=== PATIENT | male | born 1950 | race Caucasian/White ===

== ENCOUNTER 2024-10-09 13:15 | Inpatient (IN) | payer OTHER ==
[~2024-10-09] VITALS: Ht 175.3 cm; Wt 94.2 kg
[~2024-10-09 13:15] MED LIST: Amlodipine-Ben1 EAC3 PO; HYDCHL25 PO; OXYC5 PO; Toprol Xl50 MG PO
[2024-10-09 13:54] LABS: Hematocrit 47.9 % (37.0-53.0); Hemoglobin 16.7 g/dL (13.5-17.5); Mean Corpuscular HGB 30.6 pg (26.0-34.0); Mean Corpuscular HGB Conc 34.9 g/dL (31.5-36.5); Mean Corpuscular Volume 88 fL (80-100); Mean Platelet Volume 11.9 fL (9.1-12.4); Platelet Count 183 K/mm3 (150-400); RDW Coefficient Variation 13.3 % (11.7-14.2); RDW Standard Deviation 43.1 fL (35.1-46.3); Red Blood Cell Count 5.45 M/mm3 (4.30-5.90)
[2024-10-09 13:56] LABS: White Blood Cell Count 10.05 K/mm3 (4.00-11.30)
[2024-10-09 14:07] LABS: Albumin, Blood 3.4 g/dL (3.4-5.0); Albumin/Globulin Ratio 1.1 (0.8-1.8); Bilirubin, Total 2.6 mg/dL (0.1-1.0); Calcium, Blood 8.6 mg/dL (8.5-10.1); Potassium, Blood 4.1 mmol/L (3.5-5.5); Total Protein, Blood 6.4 g/dL (6.4-8.2)
[2024-10-09 14:18] LABS: BAND PERCENT MAN 4 % (0-8); BASOPHILS PERCENT MAN 1 % (0-2); EOSINOPHILS PERCENT MAN 0 % (0-6); LYMPHOCYTES % ATYPICAL MANUAL 3 % (0-0); LYMPHOCYTES ABSOLUTE MAN 2.41 K/mm3 (0.84-5.20); LYMPHOCYTES PERCENT MAN 21 % (21-46); MONOCYTES PERCENT MAN 5 % (4-13); NEUTROPHILS ABSOLUTE MAN 7.03 K/mm3 (1.96-9.15); SEG NEUTROPHILS PERCENT MAN 66 % (41-73); TOTAL CELLS COUNTED 100
[2024-10-09] MEDS ORDERED: Nitroglycerin 0.4 MG SUBL SL PRN (19:40)
[2024-10-09] MEDS ORDERED: FLU VACC TS2024-25(6MOS UP)/PF 45 MCG/0.5 ML SYRINGE IM ONE (19:40)
[2024-10-09] MEDS ORDERED: HydrALAZINE HCl 20 MG / ML 1ML Vial IV PRN (19:40)
[2024-10-09] MEDS ORDERED: Ondansetron HCl 2 MG / ML 2ML Vial IV PRN (19:40)
[2024-10-09 19:43] LABS: Influenza A, PCR NEGATIVE (NEGATIVE); Influenza B, PCR NEGATIVE (NEGATIVE); Resp Syncytial Virus, PCR NEGATIVE (NEGATIVE); SARS-Cov-2 (COVID-19) PCR, MMC NEGATIVE (NEGATIVE)
[2024-10-09] MEDS ORDERED: FentaNYL Citrate 50 MCG/ML 2 ML Injection IV PRN (19:45)
[2024-10-09] MEDS ORDERED: Aspirin 81 MG Chew PO SCH (20:00)
[2024-10-09] MEDS ORDERED: Furosemide 10 MG/ML 4ML Vial IV SCH (20:00)
[2024-10-09] MEDS ORDERED: Enoxaparin 40 MG/0.4 ML SYR SC SCH (20:00)
[2024-10-09 20:41] LABS: Anti-Xa UFH, PHA Monitoring <0.10 IU/mL; International Normalized Ratio 1.17; Prothrombin Time Results 12.4 Sec (9.7-11.5)
[2024-10-09] MEDS ORDERED: Heparin Sodium,Porcine/0.5 NS 500 ML IV SCH (20:55)
[2024-10-10 00:52] LABS: Source, Urine Clean Catch
[2024-10-10 00:53] LABS: Bilirubin, Urine Neg (Neg); Blood, Urine Neg (Neg); Glucose Qualitative, Urine Neg (Neg); Ketones, Urine Neg (Neg); Leukocyte Esterase, Urine Neg (Neg); Nitrite, Urine Neg (Neg); Protein, Urine Neg (Neg); Urobilinogen, Urine NORM (Normal)
[2024-10-10 00:56] LABS: Appearance, Urine Clear (Clear); Color, Urine Pale Yellow (P-Yellow)
[2024-10-10 05:23] LABS: BASOPHILS ABSOLUTE AUTO 0.05 K/mm3 (0.00-0.23); BASOPHILS PERCENT AUTO 1 % (0-2); EOSINOPHILS ABSOLUTE AUTO 0.09 K/mm3 (0.00-0.68); EOSINOPHILS PERCENT AUTO 1 % (0-6); Hematocrit 45.8 % (37.0-53.0); Hemoglobin 15.5 g/dL (13.5-17.5); IMMATURE GRAN ABSOLUTE AUTO 0.04 K/mm3 (0.00-0.10); IMMATURE GRAN PERCENT AUTO 0 % (0-1); LYMPHOCYTES ABSOLUTE AUTO 1.97 K/mm3 (0.84-5.20); LYMPHOCYTES PERCENT AUTO 19 % (21-46); MONOCYTES ABSOLUTE AUTO 0.81 K/mm3 (0.16-1.47); MONOCYTES PERCENT AUTO 8 % (4-13); Mean Corpuscular HGB 30.2 pg (26.0-34.0); Mean Corpuscular HGB Conc 33.8 g/dL (31.5-36.5); Mean Corpuscular Volume 89 fL (80-100); Mean Platelet Volume 12.4 fL (9.1-12.4); NEUTROPHILS ABSOLUTE AUTO 7.51 K/mm3 (1.96-9.15); NEUTROPHILS PERCENT AUTO 72 % (41-73); Platelet Count 156 K/mm3 (150-400); RDW Coefficient Variation 13.2 % (11.7-14.2); RDW Standard Deviation 43.5 fL (35.1-46.3); Red Blood Cell Count 5.13 M/mm3 (4.30-5.90); White Blood Cell Count 10.47 K/mm3 (4.00-11.30)
[2024-10-10 05:54] LABS: Albumin, Blood 3.1 g/dL (3.4-5.0); Albumin/Globulin Ratio 1.2 (0.8-1.8); Bilirubin, Total 2.8 mg/dL (0.1-1.0); Bun/Creatinine Ratio 18.7 (12.0-20.0); Creatinine, Blood 0.86 mg/dL (0.60-1.20); Globulin, Blood 2.6 g/dL (2.2-4.0); Potassium, Blood 3.5 mmol/L (3.5-5.5); Total Protein, Blood 5.7 g/dL (6.4-8.2)
[2024-10-10] MEDS ORDERED: Dose Adjust by Pharmacy XX STA (06:37)
[2024-10-10] MEDS ORDERED: Lisinopril 10 MG Tab PO SCH (08:00)
[2024-10-10] MEDS ORDERED: Furosemide 10 MG/ML 4ML Vial IV SCH (09:00)
[2024-10-10 14:33] VITALS: BP 125/82
--- NOTE | 2024-10-10 15:11 | NUR ---
1410- PATIENT ARRIVED TO MEDICAL FLOOR
[2024-10-10] MEDS ORDERED: Carvedilol 6.25 MG Tab PO SCH (17:00)
--- NOTE | 2024-10-10 17:00 | NUR ---
SHIFT SUMMARY PATIENT ADMITTED TO MEDICAL FLOOR THIS SHIFT. A/OX4. SKIN INTACT PER 2 RN SKIN CHECK. ECHO SCHEDULED. ON ROOM AIR. IV PATENT. VOIDING WELL. CALL LIGHT IN REACH, ABLE TO MAKE NEEDS KNOWN. CARES ONGOING.
[2024-10-10 20:24] VITALS: BP 98/67
--- NOTE | 2024-10-11 04:33 | NUR ---
SHIFT SUMMARY: PT AOX4 IND IN ROOM. COMPLAINTS OF NOT BEING ABLE TO SLEEP THE LAST FEW DAYS DUE TO HEART CONDITION. FELL ASLEEP AROUND MIDNIGHT AND HAS HAD NO ACUTE EVENTS. TELE REPORTED SMALL RUN OF SVT, PT ASSYMPTOMATIC STILL SLEEPING. PT RESTING IN BED, BED IN LOWEST POSITION, CALL LIGHT IN REACH. CONTINUING CARE.
[2024-10-11 05:08] VITALS: BP 113/72
[2024-10-11 05:10] VITALS: BP 113/72
[2024-10-11 07:06] LABS: Bun/Creatinine Ratio 15.8 (12.0-20.0); Calcium, Blood 8.6 mg/dL (8.5-10.1); Creatinine, Blood 1.2 mg/dL (0.60-1.20); Potassium, Blood 3.4 mmol/L (3.5-5.5)
[2024-10-11 07:53] VITALS: BP 124/77
[2024-10-11] MEDS ORDERED: Potassium Chloride 20 MEQ TabCR PO SCH (08:00)
[2024-10-11] MEDS ORDERED: Empagliflozin 10 MG TAB PO SCH (09:00)
[2024-10-11 15:09] VITALS: BP 98/71
--- NOTE | 2024-10-11 16:15 | NUR ---
NO CHANGES IN PT. EKG DONE AND HANED TO MD WITH NO FURTHER ORDERS. PT IS A&OX4 AND INDEPENDENT IN THE ROOM. PT HAS NO QUESTIONS OR CONCERNS AT THIS TIME.
[2024-10-11 19:43] VITALS: BP 109/63
[2024-10-12 02:20] VITALS: BP 106/78
--- NOTE | 2024-10-12 04:47 | NUR ---
SHIFT SUMMARY: PT AOX4 AND IND IN ROOM. ABLE TO TOLERATE SOME OF THE DINNER AND ABLE TO SLEEP FOR A FEW HOURS BUT WAS AWAKE WATCHING TV MOST OF THE NIGHT. HAD A COUPLE OF RUNS OF SVT PER PACKAGING MECHANIC BUT PT WAS ASSYMPTOMATIC. NO ACUTE EVENTS OVER NIGHT. PT CALLS APPROPRIATELY. RESTING IN BED, BED IN LOWEST POSITION, CALL LIGHT IN REACH. CONTINUING CARE.
[2024-10-12 06:40] LABS: Bun/Creatinine Ratio 20.2 (12.0-20.0); Calcium, Blood 8.7 mg/dL (8.5-10.1); Creatinine, Blood 1.09 mg/dL (0.60-1.20); Potassium, Blood 3.6 mmol/L (3.5-5.5)
[2024-10-12] MEDS ORDERED: Furosemide 40 MG Tab PO SCH (09:00)
[2024-10-12 09:04] VITALS: BP 115/78
[2024-10-12 16:17] VITALS: BP 105/79
--- NOTE | 2024-10-12 17:21 | NUR ---
NO CHAGNE IN PT'S STATUS. NO C/O SOB OR PAIN.
[2024-10-12 19:25] VITALS: BP 104/79
[2024-10-12] MEDS ORDERED: Sacubitril/Valsartan 24 MG-26 MG Tab PO SCH (21:00)
[2024-10-12] MEDS ORDERED: Metoprolol Tartrate 25 MG Tab PO SCH (21:00)
[2024-10-12 21:39] VITALS: BP 109/63
[2024-10-13 04:03] VITALS: BP 116/96
[2024-10-13 05:20] LABS: Bun/Creatinine Ratio 19.6 (12.0-20.0); Calcium, Blood 8.5 mg/dL (8.5-10.1); Creatinine, Blood 1.07 mg/dL (0.60-1.20); Potassium, Blood 3.9 mmol/L (3.5-5.5)
--- NOTE | 2024-10-13 06:04 | NUR ---
SHIFT SUMMARY: PT AOX4 IND IN ROOM. PT TOLERATED MEDS WELL. BP SOFT IN THE 100'S SYS AND GIVEN METOPROLOL DUE TO BEING IN AFIB BUT TOLERATED WELL AND CONVERTED BACK TO NSR IN THE 70S. PT ASSYMPTOMATIC AND STATE FEELING WELL. NO ACUTE EVENTS OVERNIGHT. PT RESTING IN BED, BED IN LOWEST POSITION, CALL LIGHT IN REACH. CONTINING CARE.
[2024-10-13 07:21] VITALS: BP 115/70
[2024-10-13] MEDS ORDERED: ASPI81CH PO (12:43)
[2024-10-13] MEDS ORDERED: JARDIANCE10 MG PO (12:44)
[2024-10-13] MEDS ORDERED: METO25 PO (12:48)
[2024-10-13] MEDS ORDERED: FURO40 PO (12:48)
[2024-10-13] MEDS ORDERED: K-Dur20 MEQ PO (12:49)
[2024-10-13] MEDS ORDERED: ENTRESTO 24 MG1 EACH PO (12:50)
--- NOTE | 2024-10-13 14:39 | NUR ---
ASSUMED CARE OF MR CORTEZ AT 0930HRS. HE HAS BEEN UP AMBULATING INDEPENDENTLY, STEADY GAIT. HE LOOKS WELL AND SAID HE FEELS WELL, DENIES ANY PAIN OR NEW SYMPTOMS. GIVEN DISCHARGE PAPERWORK BY JARVIS MACHUCA RN AND PT VERBALISED UNDERSTANDING OF WRITTEN AND VERBAL DISCHARGE INSTRUCTIONS. HE HAD NO NEW CONCERNS PRIOR TO DISCHARGE. PIV AND TELEMETRY REMOVED PRIOR TO DISCHARGE. ESCORTED DOWN TO LOBBY VIA W/C BY PROOF TESTER AT 1355HRS.
== END 2024-10-13 14:36 | disposition home or self-care (01) | DRG 291 ==
LOC: ER 13:15 → ERHOLD 13:16 → MEDS 13:16 → ERHOLD 13:16 → MEDS 10-10 14:00 → ENPENDDIS 10-13 12:01 → MEDS 10-13 14:36
PROVIDERS: Internal Medicine; Physician Assistant; Student in an Organized Health Care Education/Training Program; ADMIT Internal Medicine
DX: I11.0 Hypertensive heart disease with heart failure (principal); I50.21 Acute systolic (congestive) heart failure; I42.0 Dilated cardiomyopathy; I43 Cardiomyopathy in diseases classified elsewhere; I48.91 Unspecified atrial fibrillation; J45.909 Unspecified asthma, uncomplicated; I27.20 Pulmonary hypertension, unspecified; E66.9 Obesity, unspecified; Z68.32 Body mass index [BMI] 32.0-32.9, adult; Z96.642 Presence of left artificial hip joint; Z79.899 Other long term (current) drug therapy; Z79.82 Long term (current) use of aspirin; Z79.84 Long term (current) use of oral hypoglycemic drugs
CPT/HCPCS: 0241U; 36415; 71046; 80048; 80053; 81003; 83880; 84484; 85025; 85520; 85610; 85730; 93005; 93010; 93306; 96365; 96366; 96375; 96376; 99285-25; A9270; G0378; J1644; J1940; J3010